=== PATIENT | female | born 1975 | race Caucasian/White ===

== ENCOUNTER 2016-11-22 07:00 | Day surgery (SDC) | payer BC ==
[~2016-11-22 07:00] MED LIST: Lidocaine 1%/Sod Bicarbonate in NS 8.4% 1 ML Syringe PRN; Sodium Chloride 0.9% 10 ML Syringe FLUSH PRN
[2016-11-22] MEDS ORDERED: Rocuronium 50 MG/5 ML Vial ONE (07:16)
[2016-11-22] MEDS ORDERED: Ondansetron 4 MG/2 ML SDV ONE (07:16)
[2016-11-22] MEDS ORDERED: Propofol 200 MG/20 ML SDV ONE (07:16)
[2016-11-22] MEDS ORDERED: Lidocaine 1% 4 ML ONE (07:17)
[2016-11-22] MEDS ORDERED: Midazolam 1 MG/ML 2 ML SDV ONE (07:17)
[2016-11-22] MEDS ORDERED: fentaNYL 250 MCG/5 ML SDV ONE ×2 (07:17→08:37)
[2016-11-22] MEDS ORDERED: Scopolamine 1.5 MG Transdermal Patch TOP ONE (07:28)
--- NOTE | 2016-11-22 07:28 | PCM.PREANE ---
Preanesthetic Assessment - Anesthesia/Transfusion/Family Hx Anesthesia History: Prior Anesthesia Without Reaction Family History of Anesthesia Reaction: No Transfusion History: No Prior Transfusion(s) - Review of Systems General: No Symptoms Pulmonary: No Symptoms Cardiovascular: No Symptoms Gastrointestinal: No symptoms Neurological: No Symptoms Other: Reports: None - Physical Assessment NPO Status Date: 11/21/16 NPO Status Time: 00:00 Pulse: 83 O2 Sat by Pulse Oximetry: 97 Respiratory Rate: 16 Blood Pressure: 151/81 Temperature: 36.6 C Height: 1.6 m Weight: 103.147 kg ASA Class: 2 Mental Status: Alert & Oriented x3 Dentition: Reports: Normal Dentition, [place](s) Thyro-Mental Finger Breadths: 3 Mouth Opening Finger Breadths: 3 ROM/Head Extension: Full Lungs: Clear to auscultation, Normal respiratory effort Cardiovascular: Regular Rate, Regular Rhythm, No Murmurs - Lab Values: on chart - Allergies Allergies/Adverse Reactions: Allergies Allergy/AdvReac Type Severity Reaction Status Date / Time No Known Allergies Allergy Verified 11/21/16 16:10 PreAnesthesia Questionnaire HEENT History: Reports: Impaired Vision, Other (See Below) Other HEENT History: wears glasses Cardiovascular History: Reports: None Respiratory History: Reports: None Gastrointestinal History: Reports: Other (See Below) Other Gastrointestinal History: gallstones Genitourinary History: Reports: None [employer]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[employer] History: Reports: Musculoskeletal History: Reports: None Neurological History: Reports: None Psychiatric History: Reports: None Endocrine/Metabolic History: Reports: Obesity/BMI 30+ Hematologic History: Reports: None Immunologic History: Reports: None Oncologic (Cancer) History: Reports: None Dermatologic History: Reports: None - Past Surgical History Head Surgeries/Procedures: Reports: None Cardiovascular Surgical History: Reports: None Respiratory Surgical History: Reports: None GI Surgical History: Reports: None Female Surgical History: Reports: Section Neurological Surgical History: Reports: None Musculoskeletal Surgical History: Reports: None Oncologic Surgical History: Reports: None - SUBSTANCE USE Smoking Status *Q: Never Smoker Tobacco Use Within Last Twelve Months: No Second Hand Smoke Exposure: No Days Per Week of Alcohol Use: 0 Number of Drinks Per Day: 0 Total Drinks Per Week: 0 Recreational Drug Use History: No - HOME MEDS Home Medications: Home Meds Norgestimate-Ethinyl Estradiol [Tri-Linyah Tablet] 1 tab PO DAILY 11/21/16 [ History] - CURRENT (IN HOUSE) MEDS Current Meds: Current Medications Lactated Ringer's (Ringers, Lactated) 1,000 mls @ 125 mls/hr IV ASDIRECTED MAITE Stop: 11/22/16 23:00 Lidocaine/Sodium Bicarbonate (Buffered Lidocaine 1% In Ns 8.4%) 0.25 ml .XX ONETIME PRN PRN Reason: Prior to IV Start Stop: 11/22/16 18:00 Sodium Chloride (Saline Flush) 10 ml FLUSH ASDIRECTED PRN PRN Reason: Keep Vein Open Stop: 11/22/16 18:00 Discontinued Medications Fentanyl (Sublimaze) Confirm Administered Dose 250 mcg .ROUTE .STK-MED ONE Stop: 11/22/16 07:18 Lidocaine HCl (Xylocaine-Mpf 1%) Confirm Administered Dose 4 mls @ as directed .ROUTE .STK-MED ONE Stop: 11/22/16 07:18 Midazolam HCl (Versed 1 Mg/Ml) Confirm Administered Dose 2 mg .ROUTE .STK-MED ONE Stop: 11/22/16 07:18 Ondansetron HCl (Zofran) Confirm Administered Dose 4 mg .ROUTE .STK-MED ONE Stop: 11/22/16 07:17 Propofol (Diprivan 20 Ml) Confirm Administered Dose 200 mg .ROUTE .STK-MED ONE Stop: 11/22/16 07:17 Rocuronium [place] (Zemuron) Confirm Administered Dose 50 mg .ROUTE .STK-MED ONE Stop: 11/22/16 07:17
[2016-11-22] MEDS: Lactated Ringers 1,000 ML IV SCH ×2 (07:30→10:08)
[2016-11-22] MEDS ORDERED: Lidocaine 1% with EPINEPHrine 1:100,000 20 ML MDV ONE (07:31)
[2016-11-22] MEDS ORDERED: Bupivacaine 0.5%/EPINEPHrine 1:200,000 50 ML MDV ONE (07:32)
[2016-11-22] MEDS ORDERED: ceFAZolin 1 GM Vial ONE (07:45)
[2016-11-22] MEDS ORDERED: Lactated Ringers 1,000 ML ONE (08:20)
[2016-11-22] MEDS ORDERED: HYDROmorphone 1 MG/ML Syringe ONE (08:32)
--- NOTE | 2016-11-22 08:57 | PCM.OPNOTE ---
- General Post-Op/Procedure Note Date of Surgery/Procedure: 11/22/16 Operative Procedure(s): Laparoscopic cholecystectomy Pre Op Diagnosis: Symptomatic cholelithiasis Post-Op Diagnosis: Symptomatic cholelithiasis, chronic cholecystitis, uterine fibroids, ? enlarged left ovary Anesthesia Technique: General ET tube, Local Primary Surgeon: Ela Haley Anesthesia Provider: Selvin Kaye Pathology: Gallbladder and contents Fluid Replacement, Intraop: 1,600 (mL crystalloid ) EBL in mLs: 20 Complications: None Condition: Good Free Text/Narrative:: INDICATION FOR PROCEDURE: The patient is a 41-year-old woman who had been referred to me by DEBBI Olivas for evaluation for symptomatic cholelithiasis. We had discussed with the patient performing a laparoscopic cholecystectomy and associated risks of the procedure. The patient found these risks acceptable and agreed to proceed. DESCRIPTION OF PROCEDURE: The patient was taken to the operating room and placed in the supine position. Sequential compressive devices were placed on the bilateral lower extremities. After induction of general endotracheal anesthesia, the abdomen was prepped and draped in the usual sterile fashion. Preoperative antibiotics had been administered as per protocol. A supraumbilical curvilinear incision was made using a scalpel. This was deepened down through the subcutaneous tissues to the anterior abdominal wall fascia which was elevated and incised. The abdomen was bluntly entered using a hemostat. An 0 Vicryl stay suture was placed. A Ordonez cannula was introduced into the abdomen and the abdomen was insufflated to 15 mm of mercury. The abdomen was then surveyed. There appeared to be a couple of fibroids on an enlarged nongravid uterus. The left ovary also appeared enlarged but not distinctly pathologic. We will have the patient follow-up with her supervisor denture department regarding this. Attention was turned then to the patient's gallbladder which was slightly whitish in coloration with omental and duodenal adhesions. Two additional 5 mm trocars were then placed under direct visualization after first injecting local anesthetic, one in the epigastrium and one in the right subcostal margin. The gallbladder fundus was elevated, and the triangle of [place] was dissected. The critical view of safety was obtained. The cystic artery was anterior to the cystic duct. The cystic duct and the cystic artery were triply clipped and transected using Endo Emmanuel. The cystic duct was slightly enlarged, but was still less than 5 mm, a 2-0 PDS Endoloop was placed around the cystic duct stump for added security. The gallbladder was then taken off the liver bed using hook electrocautery. There was a small posterior cystic vein which was also doubly clipped and transected. This was encountered during the process of removal of the gallbladder off of the liver bed. The gallbladder was placed into an EndoCatch bag. The abdomen was irrigated and suctioned until the effluent was clear. The liver bed was reinspected for hemostasis. The 5 mm trocars were removed with no evidence of bleeding. The Ordonez cannula and gallbladder within the EndoCatch bag were then removed. There were multiple stones palpable within the gallbladder, the largest measuring nearly 2 cm. The patient's fascial incision was closed using an 0 Vicryl [id number] suture. Additional local anesthetic was injected cece-incisionally. The incisions were then closed using subcuticular 4-0 Monocryl suture. Dermabond was placed over the patient's skin incisions. The patient was then awakened from anesthesia, extubated, and transferred to the recovery room in stable condition having tolerated the procedure well. Sponge and instrument counts were reported as correct at the end of the case. POSTOPERATIVE PLAN: The patient will be discharged home today. Prescriptions for Percocet 5/325mg were given in addition to Zofran ODT and Senna-S. They will follow up in 2 weeks for a post-operative check. They are not lift over 20 pounds for the next 4 weeks. They are to call the office with any questions or concerns. I discussed my intraoperative findings and discharge instructions with the patient 's .transvaginal ultrasound will be scheduled in approximately 2 weeks, which will give time for any remaining irrigant to absorb. She will follow up with Dr. Kim after her TVUS, in about 3-4 weeks.
[2016-11-22] MEDS ORDERED: Neostigmine Methylsulfate 10 MG/10 ML MDV ONE (09:05)
[2016-11-22] MEDS ORDERED: HYDROmorphone 0.5 MG/0.5 ML Syringe IVPUSH PRN (09:11)
[2016-11-22] MEDS ORDERED: fentaNYL 250 MCG/5 ML SDV IVPUSH PRN (09:11)
--- NOTE | 2016-11-22 09:13 | PCM.POSTAN ---
POST ANESTHESIA ASSESSMENT - MENTAL STATUS Mental Status: alert, oriented - VITAL SIGNS Pulse Rate: 124 SaO2: 98 Resp Rate: 22 Blood Pressure: 135/59 Temperature: 36.6 C - RESPIRATORY Respiratory Status: respiratory rate WNL, airway patent, O2 saturation stable, supplemental oxygen - CARDIOVASCULAR CV Status: pulse rate WNL, blood pressure stable - GASTROINTESTINAL GI Status: no symptoms - PAIN Pain Score: 0 - POST OP HYDRATION Hydration Status: adequate & stable - OBSERVATIONS Free Text/Narrative:: NO ANESTHESIA COMPLICATIONS NOTED
[2016-11-22] MEDS ORDERED: Metoclopramide 10 MG/2 ML SDV ONE (09:50)
[2016-11-22] MEDS ORDERED: Metoclopramide 10 MG/2 ML SDV IVPUSH ONE (10:01)
[2016-11-22] MEDS ORDERED: Promethazine 25 MG/ML SDV IV ONE (10:09)
[2016-11-22] MEDS ORDERED: Promethazine 12.5 MG in Sodium Chloride 0.9% 50 ML IV ONE (10:30)
--- NOTE | 2016-11-22 10:53 | PCM48HPAN ---
Post Anesthesia Note - EVALUATION WITHIN 48HRS OF ANESTHETIC Vital Signs in Normal Range: Yes Patient Participated in Evaluation: Yes Respiratory Function Stable: Yes Airway Patent: Yes Cardiovascular Function Stable: Yes Hydration Status Stable: Yes Pain Control Satisfactory: Yes Nausea and Vomiting Control Satisfactory: Yes (antiemetic ordered) Mental Status Recovered: Yes - COMMENTS/OBSERVATIONS Free Text/Narrative:: no anesthesia complications noted
[2016-11-22] MEDS ORDERED: Acetaminophen/oxyCODONE 325-5 MG Tab PO ONE (12:33)
[2016-11-22 14:07] VITALS: BP 139/82
== END 2016-11-22 13:45 | disposition home or self-care (01) ==
LOC: JD.SDS 07:00
PROVIDERS: ATTEND Surgery
PROC: 0FT44ZZ Resection of Gallbladder, Percutaneous Endoscopic Approach (ICD-10-PCS; principal; 2016-11-22)
DX: K80.10 Calculus of gallbladder with chronic cholecystitis without obstruction (principal); N83.8 Other noninflammatory disorders of ovary, fallopian tube and broad ligament; E66.9 Obesity, unspecified; Z79.899 Other long term (current) drug therapy; Z98.890 Other specified postprocedural states; Z68.41 Body mass index [BMI] 40.0-44.9, adult
CPT/HCPCS: 47562; 81025; 88304; A9270; J0690; J1170; J2250; J2405; J2550; J2710; J2765; J3010; J7050; J7120; 00790; J2704